=== PATIENT | male | born 1930 | race Caucasian/White ===

== ENCOUNTER 2018-04-23 15:40 | Emergency (ER) | payer OTHER ==
[~2018-04-23] VITALS: Ht 175.3 cm; Wt 90.7 kg
[2018-04-23 15:43] VITALS: BP 184/63
[2018-04-23] MEDS ORDERED: SIMVASTATIN40 MG PO (15:56)
[2018-04-23] MEDS ORDERED: COZAAR 25 MG TA25 M1 PO (15:56)
[2018-04-23] MEDS ORDERED: ASPIRIN325 PO (15:56)
[2018-04-23] MEDS ORDERED: LOPRESSOR50 PO (15:57)
[2018-04-23] MEDS ORDERED: NORVASC5 MG PO (15:57)
== END 2018-04-23 17:58 | disposition home or self-care (01) ==
LOC: ER 15:40
DX: S01.01XA Laceration without foreign body of scalp, initial encounter (principal); I10 Essential (primary) hypertension; W01.198A Fall on same level from slipping, tripping and stumbling with subsequent striking against other object, initial encounter; Y93.89 Activity, other specified; Y92.89 Other specified places as the place of occurrence of the external cause; Y99.8 Other external cause status